=== PATIENT | male | born 1975 | race African-American/Black ===

== ENCOUNTER 2022-11-18 10:35 | Emergency (ER) | payer OTHER ==
[2022-11-18 10:41] VITALS: TEMP 98.3
--- NOTE | 2022-11-18 11:40 | XR ---
EXAMINATION TYPE: XR tibia fibula LT DATE OF EXAM: 11/18/2022 CLINICAL HISTORY: pain TECHNIQUE: AP and lateral images of the left tibia and fibula are obtained. COMPARISON: None. FINDINGS: There is no acute fracture/dislocation evident. There is intramedullary libby noted througho ut the tibia with 2 proximal and 2 distal screws noted. There is cortical thickening and central luce ncy proximal one third of the tibial diaphysis. Correlate for chronic osteomyelitis. IMPRESSION: There is no acute fracture or dislocation seen. ICD 10 NO FRACTURE, INITIAL EVALUATION
--- NOTE | 2022-11-18 12:07 | ED ---
Lower Extremity Injury HPI - General Chief Complaint: Extremity Injury, Lower Stated Complaint: L leg injury Time Seen by Provider: 11/18/22 10:42 Source: patient, RN notes reviewed Mode of arrival: ambulatory Limitations: no limitations - History of Present Illness Initial Comments: 47-year-old male presents emergency from chief complaint of left leg pain. Patient states he fell on the steps of a bus for days ago. He states her to raise swelling and pain. Patient's had prior hardware of his left leg. Patient states they're feels very warm to the touch. Denies any reported fevers or chills no other complaints. - Related Data Previous Rx's Medication Instructions Recorded HYDROcodone/APAP 10-325MG [[place] 1 each PO Q6H PRN #20 tab 01/29/14 10] Penicillin V Potassium [Pen Vee K] 500 mg PO QID #40 tab 01/29/14 Cephalexin [Keflex] 500 mg PO Q6HR #40 cap 11/18/22 Allergies Allergy/AdvReac Type Severity Reaction Status Date / Time No Known Allergies Allergy Verified 11/18/22 10:41 Review of Systems ROS Statement: Those systems with pertinent positive or pertinent negative responses have been documented in the HPI. ROS Other: All systems not noted in ROS Statement are negative. Past Medical History Past Medical History: No Reported History History of Any Multi-Drug Resistant Organisms: None Reported Past Surgical History: Cholecystectomy, Orthopedic Surgery Past Psychological History: No Psychological Hx Reported Smoking Status: Current every day smoker Past Alcohol Use History: None Reported Past Drug Use History: None Reported General Exam Limitations: no limitations General appearance: alert, in no apparent distress Head exam: Present: atraumatic, normocephalic, normal inspection Eye exam: Present: normal appearance, PERRL, EOMI. Absent: scleral icterus, conjunctival injection, periorbital swelling Respiratory exam: Present: normal lung sounds bilaterally. Absent: respiratory distress, wheezes, rales, rhonchi, stridor Cardiovascular Exam: Present: regular rate, normal rhythm, normal heart sounds. Absent: systolic murmur, diastolic murmur, rubs, gallop, clicks Extremities exam: Present: other (Left distal tib-fib there is two areas of swelling, wound noted mild warmth with palpation neurovascular intact) Course Vital Signs 11/18/22 11/18/22 11/18/22 10:40 10:41 12:46 Temperature 98.3 F Pulse Rate 82 84 64 Respiratory 20 20 18 Rate Blood Pressure 177/100 156/99 162/101 O2 Sat by Pulse 99 99 99 Oximetry Medical Decision Making - Medical Decision Making Was pt. sent in by a medical professional or institution (ROSALIND Granados, [employer], urgent care, hospital, or correction...) When possible be specific @ -No Did you speak to anyone other than the patient for history (EMS, parent, family, police, friend...)? What history was obtained from this source @ -No Did you review nursing and triage notes (agree or disagree)? Why? @ -I reviewed and agree with nursing and triage notes Were old charts reviewed (outside hosp., previous admission, EMS record, old EKG, old radiological studies, urgent care reports/EKG's, correction records)? Report findings @ -No old charts were reviewed Differential Diagnosis (chest pain, altered mental status, abdominal pain women, abdominal pain men, vaginal bleeding, weakness, fever, dyspnea, syncope, headache, dizziness, GI bleed, back pain, seizure, CVA, palpatations, mental health, musculoskeletal)? @ -Leg contusion, leg fracture, cellulitis, hematoma EKG interpreted by me (3pts min.). @ -Non- X-rays interpreted by me (1pt min.). @ -X-ray shows no acute process, no acute fracture no gas formation CT interpreted by me (1pt min.). @ -None done U/S interpreted by me (1pt. min.). @ -None done What testing was considered but not performed or refused? (CT, X-rays, U/S, labs)? Why? @ -None What meds were considered but not given or refused? Why? @ -None Did you discuss the management of the patient with other professionals (professionals i.e. ROSALIND Granados, [employer], lab, RT, psych nurse, social work nurse, manager technical training, teacher, family preservation officer, family preservation caseworker)? Give summary @ -No Was smoking cessation discussed for >3mins.? @ -No Was critical care preformed (if so, how long)? @ -No Were there social determinants of health that impacted care today? How? (Homelessness, low income, unemployed, alcoholism, drug addiction, transportation, low edu. Level, literacy, decrease access to med. care, half-way, rehab)? @ -No Was there de-escalation of care discussed even if they declined (Discuss DNR or withdrawal of care, Hospice)? DNR status @ -No What co-morbidities impacted this encounter? (DM, HTN, Smoking, COPD, CAD, Cancer, CVA, ARF, Chemo, Hep., AIDS, mental health diagnosis, sleep apnea, morbid obesity)? @ -None Was patient admitted / discharged? Hospital course, mention meds given and route, prescriptions, significant lab abnormalities, going to OR and other pertinent info. @ -Discharge patient is no acute fracture he does have some localized hematoma, open wound is concerned about early infectious process with placed on oral antibiotic is given hardware. Return parameters discussed. Undiagnosed new problem with uncertain prognosis? @ -No Drug Therapy requiring intensive monitoring for toxicity (Heparin, Nitro, Insulin, Cardizem)? @ -No Were any procedures done? @ -No Diagnosis/symptom? @ -Leg hematoma, open wound, cellulitis Acute, or Chronic, or Acute on Chronic? @ -Acute Uncomplicated (without systemic symptoms) or Complicated (systemic symptoms)? @ -Uncomplicated Side effects of treatment? @ -No Exacerbation, Progression, or Severe Exacerbation? @ -No Poses a threat to life or bodily function? How? (Chest pain, [place], NH, pneumonia, PE, COPD, DKA, ARF, appy, cholecystitis, CVA, Diverticulitis, Homicidal, Suicidal, threat to staff... and all critical care pts) @ -No Disposition Clinical Impression: Left leg cellulitis, Leg hematoma Disposition: HOME SELF-CARE Condition: Stable Instructions (If sedation given, give patient instructions): Hematoma (ED) Additional Instructions: Please return to the Emergency Department if symptoms worsen or any other concerns. Prescriptions: Cephalexin [Keflex] 500 mg PO Q6HR #40 cap Is patient prescribed a controlled substance at d/c from ED?: No Referrals: Shannan Serna [Primary Care Provider] - 1-2 days Time of Disposition: 12:23
[2022-11-18 12:48] VITALS: BP 162/101; PULSE 64; RESP 18
== END 2022-11-18 12:36 | disposition home or self-care (01) ==
LOC: EC 10:35
DX: S80.12XA Contusion of left lower leg, initial encounter (principal); F17.200 Nicotine dependence, unspecified, uncomplicated; Z90.49 Acquired absence of other specified parts of digestive tract; W10.8XXA Fall (on) (from) other stairs and steps, initial encounter
CPT/HCPCS: 99283

== ENCOUNTER 2023-11-05 01:42 | Emergency (ER) | payer OTHER ==
[2023-11-05] MEDS: SODIUM CHLORIDE 0.9% 1,000 ML IV STA (02:52)
[2023-11-05 03:09] LABS: Basophils % (A) 1 %; Eosinophils # (A) 0.1 k/uL (0-0.7); Eosinophils % (A) 3 %; HCT 42.3 % (39.0-53.0); HGB 13.7 gm/dL (13.0-17.5); Lymphocytes # (A) 2.4 k/uL (1.0-4.8); Lymphocytes % (A) 50 %; MCHC 32.4 g/dL (31.0-37.0); MCV 101.8 fL (80.0-100.0); Macrocytosis Slight; Mean Platelet Volume 7.5; Monocytes # (A) 0.2 k/uL (0-1.0); Monocytes % (A) 5 %; Neutrophils # (A) 1.9 k/uL (1.3-7.7); Neutrophils % (A) 40 %; Platelet Count 261 k/uL (150-450); RBC 4.15 m/uL (4.30-5.90); WBC 4.7 k/uL (3.8-10.6)
--- NOTE | 2023-11-05 03:10 | ED ---
General Adult HPI - General Source: patient, family, RN notes reviewed Mode of arrival: wheelchair Limitations: no limitations <Susanna Page - Last Filed: 11/05/23 03:51> <Jim Sanders - Last Filed: 11/05/23 05:31> - General Chief complaint: Arrhythmia/Palpitations Stated complaint: R Hand Laceration Time Seen by Provider: 11/05/23 03:08 - History of Present Illness Initial comments: 48-year-old male presented to the ER with a chief complaint of tremors and right hand injury. Patient reports he lost his mother approximately 2 weeks ago which has been extremely difficult for him. He states he has been experiencing "body tremors". He states he will wake up in the morning extremely shaky and having a racing heart. He states this evening he consumed approximately half a pint of alcohol. He denies any current chest pain or palpitations. He injured his right hand but is unsure of how. He states bleeding is controlled with compression. Tetanus is up-to-date. Patient denies any current headache, cough, congestion, shortness of breath, abdominal pain, constipation/diarrhea, urinary complaints or peripheral edema. Patient has no known cardiac history. No significant past medical history. (Susanna Page) - Related Data Previous Rx's Medication Instructions Recorded HYDROcodone/APAP 10-325MG [[place] 1 each PO Q6H PRN #20 tab 01/29/14 10] Penicillin V Potassium [Pen Vee K] 500 mg PO QID #40 tab 01/29/14 Cephalexin [Keflex] 500 mg PO Q6HR #40 cap 11/18/22 Allergies Allergy/AdvReac Type Severity Reaction Status Date / Time No Known Allergies Allergy Verified 11/05/23 01:51 Review of Systems ROS Other: All systems not noted in ROS Statement are negative. <Susanna Page - Last Filed: 11/05/23 03:51> ROS Other: All systems not noted in ROS Statement are negative. <Jim Sanders - Last Filed: 11/05/23 05:31> ROS Statement: Those systems with pertinent positive or pertinent negative responses have been documented in the HPI. Past Medical History Past Medical History: No Reported History History of Any Multi-Drug Resistant Organisms: None Reported Past Surgical History: Cholecystectomy, Orthopedic Surgery Past Psychological History: No Psychological Hx Reported Smoking Status: Current every day smoker Past Alcohol Use History: None Reported Past Drug Use History: None Reported <Susanna Page Filed: 11/05/23 03:51> General Exam Limitations: no limitations General appearance: alert, in no apparent distress, appears intoxicated Head exam: Present: atraumatic, normocephalic, normal inspection Respiratory exam: Present: normal lung sounds bilaterally. Absent: respiratory distress, wheezes, rales, rhonchi, stridor Cardiovascular Exam: Present: regular rate, normal rhythm, normal heart sounds. Absent: systolic murmur, diastolic murmur, rubs, gallop, clicks Extremities exam: Present: other (2 cm laceration to second right digit PIP joint. There is also a 1 cm laceration in between the PIP and DIP joint of the third right digit. She has full active range of motion. 2+ right radial pulse. Sensation intact.) Neurological exam: Present: alert, oriented X3, CN II-XII intact Skin exam: Present: warm, dry, intact, normal color. Absent: rash <Susanna Page Filed: 11/05/23 03:51> Course Vital Signs 11/05/23 11/05/23 11/05/23 01:48 02:35 02:54 Temperature 98 F Pulse Rate 76 74 73 Respiratory 18 16 16 Rate Blood Pressure 130/72 118/63 O2 Sat by Pulse 98 97 Oximetry 11/05/23 04:29 Temperature Pulse Rate 88 Respiratory 17 Rate Blood Pressure 118/77 O2 Sat by Pulse 94 L Oximetry Procedures - Laceration Laceration #1 Consent Obtained: verbal consent Indication: laceration Site: upper extremity Size (cm): 2 Depth: simple, single layer Pre-repair: wound explored, irrigated extensively, deep structures intact Type of Sutures: nylon Size of Sutures: 4-0 Number of Sutures: 2 Technique: simple, interrupted Patient Tolerated Procedure: well <Susanna Page Filed: 11/05/23 03:51> Medical Decision Making - Lab Data Result diagrams: 11/05/23 02:32 - EKG Data -: EKG Interpreted by Nd - Radiology Data Radiology results: report reviewed, image reviewed <Susanna Page Filed: 11/05/23 03:51> - Lab Data Result diagrams: 11/05/23 02:32 11/05/23 02:32 <Jim Sanders - Last Filed: 11/05/23 05:31> - Medical Decision Making Was pt. sent in by a medical professional or institution (, ROSALIND, [employer], urgent care, hospital, or penitentiary...) When possible be specific @ -No Did you speak to anyone other than the patient for history (EMS, parent, family, police, friend...)? What history was obtained from this source @ -No Did you review nursing and triage notes (agree or disagree)? Why? @ -I reviewed and agree with nursing and triage notes Were old charts reviewed (outside hosp., previous admission, EMS record, old EKG, old radiological studies, urgent care reports/EKG's, penitentiary records)? Report findings @ -No old charts were reviewed Differential Diagnosis (chest pain, altered mental status, abdominal pain women, abdominal pain men, vaginal bleeding, weakness, fever, dyspnea, syncope, headache, dizziness, GI bleed, back pain, seizure, CVA, palpatations, mental health, musculoskeletal)? @ -Differential Palpitations: Ventricular arrhythmias, atrial arrhythmias, myocardial infarction, anemia, thyrotoxicosis, electrolyte imbalance, hypokalemia, pulmonary embolism, pulmonary disease, drugs, alcohol, anxiety, stress.... This is not meant to be an all-inclusive list. EKG interpreted by me (3pts min.). @ -As above X-rays interpreted by me (1pt min.). @ -Right hand x-ray interpreted by me negative for acute osseous process. No radiopaque foreign bodies. Chest x-ray interpreted by me negative for acute cardiopulmonary process. CT interpreted by me (1pt min.). @ -None done U/S interpreted by me (1pt. min.). @ -None done What testing was considered but not performed or refused? (CT, X-rays, U/S, labs)? Why? @ -None What meds were considered but not given or refused? Why? @ -None Did you discuss the management of the patient with other professionals (professionals i.e. ROSALIND Granados, SUPER[employer], lab, RT, psych nurse, long term care social worker, water supply technician, teacher, senior compliance officer, case supervisor)? Give summary @ -No Was smoking cessation discussed for >3mins.? @ -No Was critical care preformed (if so, how long)? @ -No Were there social determinants of health that impacted care today? How? (Homelessness, low income, unemployed, alcoholism, drug addiction, transportation, low edu. Level, literacy, decrease access to med. care, long-term, rehab)? @ -No Was there de-escalation of care discussed even if they declined (Discuss DNR or withdrawal of care, Hospice)? DNR status @ -No What co-morbidities impacted this encounter? (DM, HTN, Smoking, COPD, CAD, Cancer, CVA, ARF, Chemo, Hep., AIDS, mental health diagnosis, sleep apnea, morbid obesity)? @ -None Was patient admitted / discharged? Hospital course, mention meds given and route, prescriptions, significant lab abnormalities, going to OR and other p ertinent info. @ -48-year-old male presented to ER with a chief complaint of "chest tremors". Patient also has right hand injury with lacerations. History and physical exam completed. Vitals stable. Patient in no signs of acute distress and nontoxic- appearing. Exam remarkable for a 2 cm laceration to right index finger. Minimal active bleeding. Right upper extremity neurovascular intact. There is also superficial lacerations to the third digit. Right hand x-ray interpreted by me negative for acute process or radiopaque foreign body. Lacerations closed, procedure note above. Cardiac workup obtained. Patient signed out to Dr. Sanders pending laboratory studies and disposition. (Susanna Page) - Lab Data Lab Results 11/05/23 11/05/23 11/05/23 Range/Units 02:32 02:32 02:32 WBC 4.7 (3.8-10.6) k/uL RBC 4.15 L (4.30-5.90) m/uL Hgb 13.7 (13.0-17.5) gm/dL Hct 42.3 (39.0-53.0) % MCV 101.8 H (80.0-100.0) fL MCH 33.0 (25.0-35.0) pg MCHC 32.4 (31.0-37.0) g/dL RDW 14.0 (11.5-15.5) % Plt Count 261 (150-450) k/uL MPV 7.5 Neutrophils % 40 % Lymphocytes % 50 % Monocytes % 5 % Eosinophils % 3 % Basophils % 1 % Neutrophils # 1.9 (1.3-7.7) k/uL Lymphocytes # 2.4 (1.0-4.8) k/uL Monocytes # 0.2 (0-1.0) k/uL Eosinophils # 0.1 (0-0.7) k/uL Basophils # 0.0 (0-0.2) k/uL Macrocytosis Slight PT 10.3 (10.0-12.5) sec INR 0.9 (<1.2) APTT 24.5 (22.0-30.0) sec Sodium 140 (137-145) mmol/L Potassium 3.6 (3.5-5.1) mmol/L Chloride 109 H (98-107) mmol/L Carbon Dioxide 21 L (22-30) mmol/L Anion Gap 10 mmol/L BUN 10 (9-20) mg/dL Creatinine 0.82 (0.66-1.25) mg/dL Est GFR (CKD-EPI)AfAm >90 (>60 ml/min/1.73 sqM) Est GFR (CKD-EPI)NonAf >90 (>60 ml/min/1.73 sqM) Glucose 85 (74-99) mg/dL Calcium 8.9 (8.4-10.2) mg/dL Magnesium 1.8 (1.6-2.3) mg/dL Total Bilirubin 1.3 (0.2-1.3) mg/dL AST 39 (17-59) U/L ALT 22 (4-49) U/L Alkaline Phosphatase 45 (38-126) U/L Troponin I (0.000-0.034) ng/mL Total Protein 6.9 (6.3-8.2) g/dL Albumin 4.2 (3.5-5.0) g/dL Serum Alcohol 272 H* mg/dL 11/05/23 Range/Units 02:32 WBC (3.8-10.6) k/uL RBC (4.30-5.90) m/uL Hgb (13.0-17.5) gm/dL Hct (39.0-53.0) % MCV (80.0-100.0) fL MCH (25.0-35.0) pg MCHC (31.0-37.0) g/dL RDW (11.5-15.5) % Plt Count (150-450) k/uL MPV Neutrophils % % Lymphocytes % % Monocytes % % Eosinophils % % Basophils % % Neutrophils # (1.3-7.7) k/uL Lymphocytes # (1.0-4.8) k/uL Monocytes # (0-1.0) k/uL Eosinophils # (0-0.7) k/uL Basophils # (0-0.2) k/uL Macrocytosis PT (10.0-12.5) sec INR (<1.2) APTT (22.0-30.0) sec Sodium (137-145) mmol/L Potassium (3.5-5.1) mmol/L Chloride (98-107) mmol/L Carbon Dioxide (22-30) mmol/L Anion Gap mmol/L BUN (9-20) mg/dL Creatinine (0.66-1.25) mg/dL Est GFR (CKD-EPI)AfAm (>60 ml/min/1.73 sqM) Est GFR (CKD-EPI)NonAf (>60 ml/min/1.73 sqM) Glucose (74-99) mg/dL Calcium (8.4-10.2) mg/dL Magnesium (1.6-2.3) mg/dL Total Bilirubin (0.2-1.3) mg/dL AST (17-59) U/L ALT (4-49) U/L Alkaline Phosphatase (38-126) U/L Troponin I <0.012 (0.000-0.034) ng/mL Total Protein (6.3-8.2) g/dL Albumin (3.5-5.0) g/dL Serum Alcohol mg/dL - EKG Data EKG Comments: EKG taken at 1: 56 showing a normal sinus rhythm. No acute ST segment or T wave abnormalities. Normal axis. Ventricular rate 67, SC interval 131, QRS duration 90, QT/QTc 392/408. (Susanna Page) Disposition <Susanna Page - Last Filed: 11/05/23 03:51> Is patient prescribed a controlled substance at d/c from ED?: No <Jim Sanders - Last Filed: 11/05/23 05:31> Clinical Impression: Alcohol intoxication Disposition: HOME SELF-CARE Condition: Good Instructions (If sedation given, give patient instructions): Alcohol Intoxication (ED) Referrals: Shannan Serna [Primary Care Provider] - 1-2 days
[2023-11-05 03:23] LABS: INR 0.9 (<1.2)
[2023-11-05 03:24] LABS: ALT 22 U/L (4-49); AST 39 U/L (17-59); African American GFR (CKD) >90 (>60 ml/min/1.73 sqM); Albumin 4.2 g/dL (3.5-5.0); Alkaline Phosphatase 45 U/L (38-126); Anion Gap 10 mmol/L; Blood Urea Nitrogen 10 mg/dL (9-20); Calcium 8.9 mg/dL (8.4-10.2); Carbon Dioxide 21 mmol/L (22-30); Chloride 109 mmol/L (98-107); Glucose 85 mg/dL (74-99); Magnesium 1.8 mg/dL (1.6-2.3); Non-African American GFR(CKD) >90 (>60 ml/min/1.73 sqM); Partial Thromboplastin Time 24.5 sec (22.0-30.0); Potassium 3.6 mmol/L (3.5-5.1); Prothrombin Time 10.3 sec (10.0-12.5); Sodium 140 mmol/L (137-145); Total Bilirubin 1.3 mg/dL (0.2-1.3); Total Protein 6.9 g/dL (6.3-8.2)
--- NOTE | 2023-11-05 03:27 | XR ---
EXAM: XR Chest, 2 Views CLINICAL HISTORY: ITS.REASON XR Reason: dysrhythmia TECHNIQUE: Frontal and lateral views of the chest. COMPARISON: No relevant prior studies available. FINDINGS: Lungs: Unremarkable. No consolidation. Pleural space: Unremarkable. No pneumothorax. Heart: Unremarkable. No cardiomegaly. Mediastinum: Unremarkable. Normal mediastinal contour. Bones/joints: Unremarkable. No acute fracture. IMPRESSION: No consolidation.
--- NOTE | 2023-11-05 03:32 | XR ---
EXAM: XR Right Hand Complete, 3 or More Views CLINICAL HISTORY: ITS.REASON XR Reason: laceration 2-3 digtis TECHNIQUE: Frontal, lateral and oblique views of the right hand. COMPARISON: No relevant prior studies available. FINDINGS: Bones/joints: Unremarkable. No acute fracture. No dislocation. Soft tissues: Unremarkable. No radiopaque foreign body. IMPRESSION: Normal right hand x-rays.
[2023-11-05] MEDS: LIDOCAINE/EPINEPHR/TETRACAINE 5 ML BOTTLE TOPICAL ONE (03:36)
[2023-11-05 04:06] LABS: Alcohol 272 mg/dL
[2023-11-05 05:38] VITALS: BP 127/87; PULSE 92; RESP 18; TEMP 98.3
== END 2023-11-05 05:42 | disposition home or self-care (01) ==
LOC: EC 01:42
DX: S61.411A Laceration without foreign body of right hand, initial encounter (principal); F10.129 Alcohol abuse with intoxication, unspecified; F17.200 Nicotine dependence, unspecified, uncomplicated; Z90.49 Acquired absence of other specified parts of digestive tract; X58.XXXA Exposure to other specified factors, initial encounter; Y90.8 Blood alcohol level of 240 mg/100 ml or more
CPT/HCPCS: 99285; 12001; 36415; 93005; 80053; 83735; 84484; 85025; 85610; 85730; 73120; 71046; 96360; G0480; 80320

== ENCOUNTER 2023-11-07 12:57 | Observation (INO) | payer OTHER ==
--- NOTE | 2023-11-07 13:23 | ED ---
Nausea/Vomiting/Diarrhea HPI - General Source: patient, RN notes reviewed <Mariana Somers - Last Filed: 11/07/23 13:20> - General Source: patient Limitations: no limitations <Carlos Pepper - Last Filed: 11/07/23 19:50> - General Chief complaint: Abdominal Pain Stated complaint: vomitting/abd pain Time Seen by Provider: 11/07/23 13:12 - History of Present Illness Initial comments: Quick [id number] male with history of gastric ulcers presenting with chief complaint of epigastric and upper abdominal pain over the past 3 to 4 days and associated nausea and vomiting. endorses symptoms of coffee-ground emesis, belching, heart burn, and chills. cholecystectomy completed roughly 5 to 6 years ago with no acute complications. (Mariana Somers) Patient is a 48-year-old male present to the emergency department with concerns with abdominal discomfort. Symptoms have progressed over the past few days. Patient does have nausea and vomiting. Symptoms worsen with attempted eating and does cause emesis. Patient does have history of similar symptoms previously associated with an ulcer. Patient states discomfort is waxing and waning and is sometimes severe. Discomfort is epigastric and somewhat towards the right upper quadrant (Carlos Pepper) - Related Data Home Medications Medication Instructions Recorded Confirmed Albuterol Sulfate [Albuterol 2 puff INHALATION RT-Q4H PRN 11/07/23 11/07/23 Sulfate Hfa] Montelukast [Singulair] 10 mg PO DAILY 11/07/23 11/07/23 amLODIPine [Norvasc] 10 mg PO DAILY 11/07/23 11/07/23 hydrOXYzine HCL [Atarax] 25 mg PO QID PRN 11/07/23 11/07/23 lisinopriL 40 mg PO DAILY 11/07/23 11/07/23 Allergies Allergy/AdvReac Type Severity Reaction Status Date / Time No Known Allergies Allergy Verified 11/07/23 19:43 Review of Systems ROS Other: All systems not noted in ROS Statement are negative. <Mariana Somers - Last Filed: 11/07/23 13:20> ROS Other: All systems not noted in ROS Statement are negative. Constitutional: Denies: fever Eyes: Denies: eye pain ENT: Denies: ear pain Respiratory: Denies: cough Cardiovascular: Denies: chest pain Gastrointestinal: Reports: as per HPI, abdominal pain, nausea, vomiting Genitourinary: Denies: dysuria Musculoskeletal: Denies: back pain <Carlos Pepper - Last Filed: 11/07/23 19:50> ROS Statement: Those systems with pertinent positive or pertinent negative responses have been documented in the HPI. Past Medical History Past Medical History: No Reported History History of Any Multi-Drug Resistant Organisms: None Reported Past Surgical History: Cholecystectomy, Orthopedic Surgery Past Psychological History: No Psychological Hx Reported Smoking Status: Current every day smoker Past Alcohol Use History: None Reported Past Drug Use History: None Reported <Mariana Somers - Last Filed: 11/07/23 13:20> General Exam <Mariana Somers - Last Filed: 11/07/23 13:20> Limitations: no limitations General appearance: alert Head exam: Present: normocephalic Eye exam: Present: normal appearance Neck exam: Present: normal inspection Respiratory exam: Present: normal lung sounds bilaterally Cardiovascular Exam: Present: regular rate, normal rhythm Expanded Peripheral pulses: 2+: Dorsalis Pedis (R), Dorsalis Pedis (L) GI/Abdominal exam: Present: soft, tenderness (Mild to moderate tenderness just right of the epigastrium), normal bowel sounds. Absent: distended, guarding, rebound, rigid, pulsatile mass Extremities exam: Present: normal inspection Neurological exam: Present: alert Psychiatric exam: Present: normal affect, normal mood Skin exam: Present: normal color <Carlos Pepper - Last Filed: 11/07/23 19:50> - General Exam Comments Initial Comments: Visual Physical Exam Vital signs reviewed General: Well-appearing, nontoxic, no acute distress. Head: Normocephalic, atraumatic Eyes: PERRLA, EOMI ENT: Airway patent Chest: Nonlabored breathing Skin: No visual rash, normal skin tone Neuro: Alert and oriented 3 Musculoskeletal: No gross abnormalities (Mariana Somers) Course Vital Signs 11/07/23 11/07/23 13:38 19:10 Temperature 97.9 F Pulse Rate 60 Respiratory 18 Rate Blood Pressure 203/110 190/116 O2 Sat by Pulse 99 Oximetry Medical Decision Making <Mariana Somers - Last Filed: 11/07/23 13:20> - Lab Data Result diagrams: 11/07/23 13:39 11/07/23 13:39 <Carlos Pepper - Last Filed: 11/07/23 19:50> - Medical Decision Making I completed the quick note portion of this chart signed Mariana Somers PA-C (Mariana Somers) Was pt. sent in by a medical professional or institution (ROSALIND Granados, DEAD MAIL CHECKER, urgent care, hospital, or penitentiary...) When possible be specific @ -No Did you speak to anyone other than the patient for history (EMS, parent, family, police, friend...)? What history was obtained from this source @ -No Did you review nursing and triage notes (agree or disagree)? Why? @ -I reviewed and agree with nursing and triage notes Were old charts reviewed (outside hosp., previous admission, EMS record, old EKG, old radiological studies, urgent care reports/EKG's, penitentiary records)? Report findings @ -No old charts were reviewed Differential Diagnosis (chest pain, altered mental status, abdominal pain women, abdominal pain men, vaginal bleeding, weakness, fever, dyspnea, syncope, headache, dizziness, GI bleed, back pain, seizure, CVA, palpatations, mental health, musculoskeletal)? @ -Differential Abdominal Pain Men: Appendicitis, cholecystitis, diverticulosis, ischemic bowel, pancreatitis, hepatitis, UTI, gastroenteritis, AAA, incarcerated hernia, bowel obstruction, constipation, inflammatory bowel, hepatitis, peptic ulcer disease, splenic infarction, perforated viscus, testicular torsion, this is not meant to be an all-inclusive list EKG interpreted by me (3pts min.). @ -As above X-rays interpreted by me (1pt min.). @ -None done CT interpreted by me (1pt min.). @ -CT scan without definite abnormality. There is a low-lying metallic, possibly surgical U/S interpreted by me (1pt. min.). @ -Ultrasound shows pedal megaly What testing was considered but not performed or refused? (CT, X-rays, U/S, labs)? Why? @ -None What meds were considered but not given or refused? Why? @ -None Did you discuss the management of the patient with other professionals (professionals i.e. ROSALIND Granados, DEAD MAIL CHECKER, lab, RT, psych nurse, transition social worker, seismograph computer, teacher, loss prevention officer, oil field caser)? Give summary @ -Case discussed with [facility], Dr. Courtney who will admit covering Dr. Link Aga Was smoking cessation discussed for >3mins.? @ -No Was critical care preformed (if so, how long)? @ -No Were there social determinants of health that impacted care today? How? (Homelessness, low income, unemployed, alcoholism, drug addiction, tr ansportation, low edu. Level, literacy, decrease access to med. care, senior care, rehab)? @ -No Was there de-escalation of care discussed even if they declined (Discuss DNR or withdrawal of care, Hospice)? DNR status @ -No What co-morbidities impacted this encounter? (DM, HTN, Smoking, COPD, CAD, Cancer, CVA, ARF, Chemo, Hep., AIDS, mental health diagnosis, sleep apnea, morbid obesity)? @ -History of gastric ulcer Was patient admitted / discharged? Hospital course, mention meds given and route, prescriptions, significant lab abnormalities, going to OR and other pertinent info. @ -Patient presents with nausea vomiting and abdominal discomfort. Patient is uncomfortable on original exam. Much improved on subsequent exam. Patient does add that he may have vomited up some blood. Patient will be admitted with GI consult. Admission orders written Undiagnosed new problem with uncertain prognosis? @ -No Drug Therapy requiring intensive monitoring for toxicity (Heparin, Nitro, Insulin, Cardizem)? @ -No Were any procedures done? @ -No Diagnosis/symptom? @ -Abdominal pain, vomiting, Acute, or Chronic, or Acute on Chronic? @ -, Acute Uncomplicated (without systemic symptoms) or Complicated (systemic symptoms)? @ -Default Side effects of treatment? @ -No Exacerbation, Progression, or Severe Exacerbation? @ -No Poses a threat to life or bodily function? How? (Chest pain, [place], [place], pneumonia, PE, COPD, DKA, ARF, appy, cholecystitis, CVA, Diverticulitis, Homicidal, Suicidal, threat to staff... and all critical care pts) @ -No (Carlos Pepper) - Lab Data Lab Results 11/07/23 11/07/23 11/07/23 Range/Units 13:39 13:39 13:39 WBC 5.7 (3.8-10.6) k/uL RBC 4.93 (4.30-5.90) m/uL Hgb 16.2 (13.0-17.5) gm/dL Hct 49.9 (39.0-53.0) % MCV 101.2 H (80.0-100.0) fL MCH 32.9 (25.0-35.0) pg MCHC 32.6 (31.0-37.0) g/dL RDW 13.5 (11.5-15.5) % Plt Count 269 (150-450) k/uL MPV 7.6 Neutrophils % 66 % Lymphocytes % 24 % Monocytes % 6 % Eosinophils % 2 % Basophils % 0 % Neutrophils # 3.8 (1.3-7.7) k/uL Lymphocytes # 1.4 (1.0-4.8) k/uL Monocytes # 0.4 (0-1.0) k/uL Eosinophils # 0.1 (0-0.7) k/uL Basophils # 0.0 (0-0.2) k/uL Sodium 137 (137-145) mmol/L Potassium 3.8 (3.5-5.1) mmol/L Chloride 101 (98-107) mmol/L Carbon Dioxide 26 (22-30) mmol/L Anion Gap 10 mmol/L BUN 10 (9-20) mg/dL Creatinine 0.88 (0.66-1.25) mg/dL Est GFR (CKD-EPI)AfAm >90 (>60 ml/min/1.73 sqM) Est GFR (CKD-EPI)NonAf >90 (>60 ml/min/1.73 sqM) Glucose 98 (74-99) mg/dL Plasma Lactic Acid Gilbert (0.7-2.0) mmol/L Calcium 10.0 (8.4-10.2) mg/dL Total Bilirubin 2.2 H (0.2-1.3) mg/dL AST 34 (17-59) U/L ALT 27 (4-49) U/L Alkaline Phosphatase 52 (38-126) U/L Total Protein 8.5 H (6.3-8.2) g/dL Albumin 4.9 (3.5-5.0) g/dL Amylase 101 (30-110) U/L Lipase 72 (23-300) U/L Urine Color Yellow Urine Appearance Clear (Clear) Urine pH 6.5 (5.0-8.0) Ur Specific [place] 1.033 (1.001-1.035) Urine Protein 1+ H (Negative) Urine Glucose (UA) Negative (Negative) Urine Ketones 2+ H (Negative) Urine Blood Small H (Negative) Urine Nitrite Negative (Negative) Urine Bilirubin 1+ H (Negative) Urine Urobilinogen 4.0 (<2.0) mg/dL Ur Leukocyte Esterase Negative (Negative) Urine RBC 29 H (0-5) /hpf Urine WBC 1 (0-5) /hpf Ur Squamous Epith Cells <1 (0-4) /hpf Urine Mucus Many H (None) /hpf 11/07/23 Range/Units 13:39 WBC (3.8-10.6) k/uL RBC (4.30-5.90) m/uL Hgb (13.0-17.5) gm/dL Hct (39.0-53.0) % MCV (80.0-100.0) fL MCH (25.0-35.0) pg MCHC (31.0-37.0) g/dL RDW (11.5-15.5) % Plt Count (150-450) k/uL MPV Neutrophils % % Lymphocytes % % Monocytes % % Eosinophils % % Basophils % % Neutrophils # (1.3-7.7) k/uL Lymphocytes # (1.0-4.8) k/uL Monocytes # (0-1.0) k/uL Eosinophils # (0-0.7) k/uL Basophils # (0-0.2) k/uL Sodium (137-145) mmol/L Potassium (3.5-5.1) mmol/L Chloride (98-107) mmol/L Carbon Dioxide (22-30) mmol/L Anion Gap mmol/L BUN (9-20) mg/dL Creatinine (0.66-1.25) mg/dL Est GFR (CKD-EPI)AfAm (>60 ml/min/1.73 sqM) Est GFR (CKD-EPI)NonAf (>60 ml/min/1.73 sqM) Glucose (74-99) mg/dL Plasma Lactic Acid Gilbert 1.2 (0.7-2.0) mmol/L Calcium (8.4-10.2) mg/dL Total Bilirubin (0.2-1.3) mg/dL AST (17-59) U/L ALT (4-49) U/L Alkaline Phosphatase (38-126) U/L Total Protein (6.3-8.2) g/dL Albumin (3.5-5.0) g/dL Amylase (30-110) U/L Lipase (23-300) U/L Urine Color Urine Appearance (Clear) Urine pH (5.0-8.0) Ur Specific [place] (1.001-1.035) Urine Protein (Negative) Urine Glucose (UA) (Negative) Urine Ketones (Negative) Urine Blood (Negative) Urine Nitrite (Negative) Urine Bilirubin (Negative) Urine Urobilinogen (<2.0) mg/dL Ur Leukocyte Esterase (Negative) Urine RBC (0-5) /hpf Urine WBC (0-5) /hpf Ur Squamous Epith Cells (0-4) /hpf Urine Mucus (None) /hpf Disposition <Mariana Somers - Last Filed: 11/07/23 13:20> Is patient prescribed a controlled substance at d/c from ED?: No Time of Disposition: 19:50 <Carlos Pepper - Last Filed: 11/07/23 19:50> Clinical Impression: Abdominal pain, Vomiting Disposition: ADMITTED IP TO THIS HOSP Referrals: Shannan Serna [Primary Care Provider] - 1-2 days
[2023-11-07 15:38] LABS: Appearance,Urine Clear (Clear); Bilirubin,Urine 1+ (Negative); Blood,Urine Small (Negative); Color,Urine Yellow; Glucose,Urine (UA) Negative (Negative); Ketones,Urine 2+ (Negative); Leukocyte Esterase,Urine Negative (Negative); Mucus,Urine Many /hpf; Nitrite,Urine Negative (Negative); PH, Urine 6.5 (5.0-8.0); Protein,Urine 1+ (Negative); RBC,Urine 29 /hpf (0-5); Specific Gravity,Urine 1.033 (1.001-1.035); Squamous Epithelial Cell,Urine <1 /hpf (0-4); WBC,Urine 1 /hpf (0-5)
--- NOTE | 2023-11-07 16:04 | US ---
EXAMINATION TYPE: US gallbladder DATE OF EXAM: 11/07/2023 COMPARISON: 2010 CLINICAL INDICATION: Male, 48 years old with history of RUQ ab pain, N/V, hx perla; Hx cholecystectom y. RUQ pain TECHNIQUE: Multiple sonographic images of the right upper quadrant are obtained. FINDINGS: EXAM MEASUREMENTS: Liver Length: 17.7 cm Gallbladder: Surgically absent CBD: 0.56 cm Right Kidney: 9.1 x 5.2 x 4.9 cm Pancreas: wnl Liver: Mild increased echogenicity. No focal lesion. Gallbladder: Surgically absent Evidence for sonographic Samuels's sign: no CBD: wnl Right Kidney: wnl IMPRESSION: 1. Borderline hepatomegaly at 17.7 cm with mild hepatic steatosis. Correlate with LFTs, lipid profile , and patient risk factors. 2. Status post cholecystectomy. No biliary ductal dilatation.
[2023-11-07 18:37] LABS: Basophils % (A) 0 %; Eosinophils # (A) 0.1 k/uL (0-0.7); Eosinophils % (A) 2 %; HCT 49.9 % (39.0-53.0); HGB 16.2 gm/dL (13.0-17.5); Lymphocytes # (A) 1.4 k/uL (1.0-4.8); Lymphocytes % (A) 24 %; MCH 32.9 pg (25.0-35.0); MCHC 32.6 g/dL (31.0-37.0); MCV 101.2 fL (80.0-100.0); Mean Platelet Volume 7.6; Monocytes # (A) 0.4 k/uL (0-1.0); Monocytes % (A) 6 %; Neutrophils # (A) 3.8 k/uL (1.3-7.7); Neutrophils % (A) 66 %; Platelet Count 269 k/uL (150-450); RBC 4.93 m/uL (4.30-5.90); RDW 13.5 % (11.5-15.5); WBC 5.7 k/uL (3.8-10.6)
[2023-11-07 18:49] LABS: ALT 27 U/L (4-49); AST 34 U/L (17-59); African American GFR (CKD) >90 (>60 ml/min/1.73 sqM); Albumin 4.9 g/dL (3.5-5.0); Alkaline Phosphatase 52 U/L (38-126); Amylase 101 U/L (30-110); Anion Gap 10 mmol/L; Blood Urea Nitrogen 10 mg/dL (9-20); Carbon Dioxide 26 mmol/L (22-30); Chloride 101 mmol/L (98-107); Glucose 98 mg/dL (74-99); Lipase 72 U/L (23-300); Non-African American GFR(CKD) >90 (>60 ml/min/1.73 sqM); Potassium 3.8 mmol/L (3.5-5.1); Sodium 137 mmol/L (137-145); Total Bilirubin 2.2 mg/dL (0.2-1.3); Total Protein 8.5 g/dL (6.3-8.2)
[2023-11-07] MEDS: HYDROmorphone 1 MG/ML 1 ML SYRINGE IVP STA (19:02)
[2023-11-07] MEDS: ONDANSETRON 4 MG/2 ML VIAL IVP STA (19:03)
[2023-11-07] MEDS: FAMOTIDINE 20 MG/2 ML VIAL IV STA (19:03)
--- NOTE | 2023-11-07 19:17 | CT ---
EXAMINATION TYPE: CT abdomen pelvis w con CT DLP: 658 mGycm, Automated exposure control for dose reduction was used. DATE OF EXAM: 11/07/2023 7:02 PM COMPARISON: CT abdomen pelvis most recent from CLINICAL INDICATION:Male, 48 years old with history of abp; Right sided abdominal pain. TECHNIQUE: Axial CT abdomen pelvis w con;Sagittal and coronal reformats were created on a separate w orkstation. Contrast used:100 ml mL of Isovue 300 with IV Contrast, (none if empty) Oral contrast used: without Oral Contrast (none if empty) FINDINGS: LOWER CHEST: Posterior dependent subsegmental atelectasis is noted. ABDOMEN LIVER: Diffusely hypoattenuating parenchyma. GALLBLADDER AND BILE DUCTS: The gallbladder is surgically absent. PANCREAS: Unremarkable. SPLEEN: Subcentimeter hypoattenuated focus in the spleen too small to characterize. ADRENAL GLANDS: Unremarkable. KIDNEYS AND URETERS: No evidence of hydronephrosis or renal calculus. The ureters are unremarkable. PELVIS BLADDER: Incompletely distended but grossly unremarkable. REPRODUCTIVE: Simple fluid noted in the scrotum likely on the basis of hydroceles. ABDOMEN & PELVIS STOMACH AND BOWEL: Stomach is grossly unremarkable. Small bowel is of normal caliber. There is a ques tionable metallic focus in the right abdomen which may be in the lumen of the small bowel versus rivera cent to it within the peritoneum. No evidence of bowel obstruction. PERITONEUM/RETROPERITONEUM: No evidence of pneumoperitoneum or free fluid. VASCULATURE: No aneurysmal changes. MUSCULOSKELETAL: Grade 1 anterolisthesis of L5 on S1 with associated pars defects. No acute osseous a bnormalities LYMPH NODES: No gross evidence for lymphadenopathy. SOFT TISSUE/ABDOMINAL WALL: Unremarkable IMPRESSION: 1. Questionable location of a metallic focus in the right sided abdomen. This metallic structure may be related to-ingested contents within the lumen of the small bowel versus dropped cholecystectomy c lips. Correlate with recent CT of surgery. 2. Hepatic steatosis.
[2023-11-07] MEDS ORDERED: ACETAMINOPHEN TAB 325 MG TAB PO PRN (19:50)
[2023-11-07] MEDS ORDERED: hydrOXYzine HCL 25 MG TAB PO PRN (19:50)
[2023-11-07] MEDS ORDERED: NALOXONE 0.4 MG/ML 1 ML VIAL IV PRN (19:50)
[2023-11-07] MEDS ORDERED: ONDANSETRON 4 MG/2 ML VIAL IVP PRN (19:50)
[2023-11-07] MEDS ORDERED: ALBUTEROL HFA INHALER INHALATION PRN (19:50)
[2023-11-07] MEDS ORDERED: HYDROmorphone 0.5 MG/0.5 ML SYRINGE IVP PRN (19:50)
[2023-11-07] MEDS: SODIUM CHLORIDE 0.9% 1,000 ML IV SCH (20:34)
[2023-11-07] MEDS: ENALAPRILAT 1.25 MG/ML 1 ML VIAL IVP STA (20:34)
[2023-11-07] MEDS: HYDROmorphone 1 MG/ML 1 ML SYRINGE IVP PRN (23:16)
[2023-11-08] MEDS: amLODIPine 10 MG TAB PO SCH (08:07)
[2023-11-08] MEDS: MONTELUKAST 10 MG TAB PO SCH (08:07)
[2023-11-08] MEDS: lisinopriL 20 MG TAB PO SCH (08:07)
[2023-11-08] MEDS: PANTOPRAZOLE 40 MG/10 ML VIAL IVP SCH (10:12)
[2023-11-08 10:47] LABS: BUN/Creat Ratio 8.67 Ratio (12.00-20.00); Blood Urea Nitrogen 7.8 mg/dL (9.0-27.0); Calcium 8.8 mg/dL (8.7-10.3); Carbon Dioxide 23.8 mmol/L (21.6-31.8); Chloride 99 mmol/L (96-109); Glucose 102 mg/dL (70-110); Potassium 3.8 mmol/L (3.5-5.5); Sodium 136 mmol/L (135-145)
[2023-11-08 10:48] LABS: Basophils # (A) 0.02 X 10*3/uL (0.00-0.10); Basophils % (A) 0.3 %; Eosinophils # (A) 0.08 X 10*3/uL (0.04-0.35); Eosinophils % (A) 1.4 %; HCT 42.4 % (39.6-50.0); HGB 14.1 g/dL (13.0-17.0); Lymphocytes # (A) 1.93 X 10*3/uL (0.90-5.00); Lymphocytes % (A) 33.3 %; MCH 33.1 pg (27.0-32.0); MCHC 33.3 g/dL (32.0-37.0); MCV 99.5 FL (80.0-97.0); Mean Platelet Volume 11.1 FL (9.5-12.2); Monocytes # (A) 0.67 X 10*3/uL (0.20-1.00); Monocytes % (A) 11.6 %; NRBC Per 100 WBC 0 X 10*3/uL (0.00-0.01); Neutrophils # (A) 3.08 X 10*3/uL (1.80-7.70); Neutrophils % (A) 53.2 %; Platelet Count 245 X 10*3/uL (140-440); RBC 4.26 X 10*6/uL (4.40-5.60); RDW 13.6 % (11.5-14.5); WBC 5.79 X 10*3/uL (4.50-10.00)
--- NOTE | 2023-11-08 12:15 | P.HPIM ---
History of Present Illness 48-year-old male with history of peptic ulcer disease in the past came in with complaints of right upper quadrant abdominal pain as per the patient crampy abdominal pain has been going on for about 5 days patient apparently complained of coffee-ground emesis although he denies any such complaints to me. Patient pain is severe in the right upper quadrant. Patient ran out of his proton pump any better about a month ago has not been taking this medication for about a month. Patient was eval by gastroenterology plan is to start him on Protonix twice a day and watch for any symptomatic improvement. Patient had a CT of the abdomen which showed a clip probably postsurgical from his previous cholecystectomy and hepatic steatosis REVIEW OF SYSTEMS: All other systems are negative except those mentioned in the HPI PHYSICAL EXAMINATION: GENERAL: The patient is alert and oriented x3, not in any acute distress. Well developed, well nourished. HEENT: Pupils are round and equally reacting to light. EOMI. No scleral icterus. No conjunctival pallor. Normocephalic, atraumatic. No pharyngeal erythema. No thyromegaly. CARDIOVASCULAR: S1 and S2 present. No murmurs, rubs, or gallops. PULMONARY: Chest is clear to auscultation, no wheezing or crackles. ABDOMEN: Soft, mild tenderness in the right upper quadrant, nondistended, normoactive bowel sounds. No palpable organomegaly. MUSCULOSKELETAL: No joint swelling or deformity. EXTREMITIES: No cyanosis, clubbing, or pedal edema. NEUROLOGICAL: Gross neurological examination did not reveal any focal deficits. SKIN: No rashes. Assessment and plan -Right upper quadrant abdominal pain can be still peptic ulcer disease, patient will be continued on Protonix and increase diet as tolerated. Patient had a clipped that may be dislodged probably not contributing to his pain but will consult general surgery for their opinion. -Hypertension continue on home regimen patient is on multiple medications which will be continued -Asthma/COPD without any acute exacerbation DVT prophylaxis: Early ambulation Past Medical History Past Medical History: No Reported History History of Any Multi-Drug Resistant Organisms: None Reported Past Surgical History: Cholecystectomy, Orthopedic Surgery Past Psychological History: No Psychological Hx Reported Smoking Status: Current every day smoker Past Alcohol Use History: None Reported Past Drug Use History: None Reported Medications and Allergies Home Medications Medication Instructions Recorded Confirmed Type Albuterol Sulfate [Albuterol 2 puff INHALATION RT-Q4H PRN 11/07/23 11/07/23 History Sulfate Hfa] Montelukast [Singulair] 10 mg PO DAILY 11/07/23 11/07/23 History amLODIPine [Norvasc] 10 mg PO DAILY 11/07/23 11/07/23 History hydrOXYzine HCL [Atarax] 25 mg PO QID PRN 11/07/23 11/07/23 History lisinopriL 40 mg PO DAILY 11/07/23 11/07/23 History Allergies Allergy/AdvReac Type Severity Reaction Status Date / Time No Known Allergies Allergy Verified 11/07/23 19:43 Physical Exam Vitals: Vital Signs Temp Pulse Resp BP Pulse Ox 11/08/23 12:05 97.6 F 75 20 153/101 96 11/08/23 10:15 97.7 F 70 18 154/87 98 11/08/23 09:32 67 18 158/93 97 11/08/23 08:30 165/98 11/08/23 07:30 97.6 F 60 20 151/97 97 11/08/23 06:31 76 22 181/96 98 11/08/23 04:00 68 24 152/93 98 11/08/23 03:00 72 20 202/111 11/07/23 23:10 68 20 167/109 97 11/07/23 20:54 59 L 16 167/102 99 11/07/23 20:26 180/113 11/07/23 19:10 190/116 11/07/23 13:38 97.9 F 60 18 203/110 99 Results CBC & Chem 7: 11/08/23 07:06 11/08/23 07:06 Labs: Abnormal Lab Results - Last 24 Hours (Table) 11/07/23 11/07/23 11/07/23 Range/Units 13:39 13:39 13:39 RBC (4.40-5.60) X 10*6/uL MCV 101.2 H (80.0-100.0) fL MCH (27.0-32.0) pg Anion Gap (4.00-12.00) mmol/L BUN (9.0-27.0) mg/dL BUN/Creatinine Ratio (12.00-20.00) Ratio Total Bilirubin 2.2 H (0.2-1.3) mg/dL Total Protein 8.5 H (6.3-8.2) g/dL Urine Protein 1+ H (Negative) Urine Ketones 2+ H (Negative) Urine Blood Small H (Negative) Urine Bilirubin 1+ H (Negative) Urine RBC 29 H (0-5) /hpf Urine Mucus Many H (None) /hpf 11/08/23 11/08/23 Range/Units 07:06 07:06 RBC 4.26 L (4.40-5.60) X 10*6/uL MCV 99.5 H (80.0-100.0) fL MCH 33.1 H (27.0-32.0) pg Anion Gap 13.20 H (4.00-12.00) mmol/L BUN 7.8 L (9.0-27.0) mg/dL BUN/Creatinine Ratio 8.67 L (12.00-20.00) Ratio Total Bilirubin (0.2-1.3) mg/dL Total Protein (6.3-8.2) g/dL Urine Protein (Negative) Urine Ketones (Negative) Urine Blood (Negative) Urine Bilirubin (Negative) Urine RBC (0-5) /hpf Urine Mucus (None) /hpf
--- NOTE | 2023-11-08 14:33 | P.GSCN ---
History of Present Illness Consult date: 11/08/23 Reason for Consult: Abdominal pain Abdominal pain History of present illness: 48-year-old male came to the hospital complaining of epigastric and right upper quadrant pain. Patient has a history of chronic reflux disease. Normally takes omeprazole 20 mg daily. Says he has not been able to fill his prescription for the last 1 month. Has been taking Tums instead. He was out of town. History of previous cholecystectomy 2007. Patient says he has a history of ulcer disease. Apparently he had some coffee-ground emesis. He was seen by GI with recommendations for antiacid therapy and observation. CAT scan reviewed shows no acute abnormalities. Denies melanotic stools. Hemoglobin stable. Review of Systems Patient denies any acute changes in his hearing or vision, no epistaxis, no headache, no shortness of breath, no chest pain, no dysuria, no hematuria, no rectal bleeding, no melena, no recent unexplained weight loss Past Medical History Past Medical History: No Reported History History of Any Multi-Drug Resistant Organisms: None Reported Past Surgical History: Cholecystectomy, Orthopedic Surgery Past Psychological History: No Psychological Hx Reported Smoking Status: Current every day smoker Past Alcohol Use History: None Reported Past Drug Use History: None Reported Medications and Allergies Home Medications Medication Instructions Recorded Confirmed Type Albuterol Sulfate [Albuterol 2 puff INHALATION RT-Q4H PRN 11/07/23 11/07/23 History Sulfate Hfa] Montelukast [Singulair] 10 mg PO DAILY 11/07/23 11/07/23 History amLODIPine [Norvasc] 10 mg PO DAILY 11/07/23 11/07/23 History hydrOXYzine HCL [Atarax] 25 mg PO QID PRN 11/07/23 11/07/23 History lisinopriL 40 mg PO DAILY 11/07/23 11/07/23 History Allergies Allergy/AdvReac Type Severity Reaction Status Date / Time No Known Allergies Allergy Verified 11/07/23 19:43 Surgical - Exam Vital Signs Temp Pulse Resp BP Pulse Ox 97.9 F 60 18 203/110 99 11/07/23 13:38 11/07/23 13:38 11/07/23 13:38 11/07/23 13:38 11/07/23 13:38 Physical exam: General: Well-developed, well-nourished HEENT: Normocephalic, sclerae nonicteric Abdomen: Mild epigastric tenderness, nondistended Extremities: No edema Neuro: Alert and oriented Results - Labs 11/08/23 07:06 11/08/23 07:06 Abnormal Lab Results - Last 24 Hours (Table) 11/07/23 11/07/23 11/07/23 Range/Units 13:39 13:39 13:39 RBC (4.40-5.60) X 10*6/uL MCV 101.2 H (80.0-100.0) fL MCH (27.0-32.0) pg Anion Gap (4.00-12.00) mmol/L BUN (9.0-27.0) mg/dL BUN/Creatinine Ratio (12.00-20.00) Ratio Total Bilirubin 2.2 H (0.2-1.3) mg/dL Total Protein 8.5 H (6.3-8.2) g/dL Urine Protein 1+ H (Negative) Urine Ketones 2+ H (Negative) Urine Blood Small H (Negative) Urine Bilirubin 1+ H (Negative) Urine RBC 29 H (0-5) /hpf Urine Mucus Many H (None) /hpf 11/08/23 11/08/23 Range/Units 07:06 07:06 RBC 4.26 L (4.40-5.60) X 10*6/uL MCV 99.5 H (80.0-100.0) fL MCH 33.1 H (27.0-32.0) pg Anion Gap 13.20 H (4.00-12.00) mmol/L BUN 7.8 L (9.0-27.0) mg/dL BUN/Creatinine Ratio 8.67 L (12.00-20.00) Ratio Total Bilirubin (0.2-1.3) mg/dL Total Protein (6.3-8.2) g/dL Urine Protein (Negative) Urine Ketones (Negative) Urine Blood (Negative) Urine Bilirubin (Negative) Urine RBC (0-5) /hpf Urine Mucus (None) /hpf Diabetes panel 11/07/23 11/08/23 Range/Units 13:39 07:06 Sodium 137 136 (137-145) mmol/L Potassium 3.8 3.8 (3.5-5.1) mmol/L Chloride 101 99 (98-107) mmol/L Carbon Dioxide 26 23.8 (22-30) mmol/L BUN 10 7.8 L (9-20) mg/dL Creatinine 0.88 0.9 (0.66-1.25) mg/dL Glucose 98 102 (74-99) mg/dL Calcium 10.0 8.8 (8.4-10.2) mg/dL AST 34 (17-59) U/L ALT 27 (4-49) U/L Alkaline Phosphatase 52 (38-126) U/L Total Protein 8.5 H (6.3-8.2) g/dL Albumin 4.9 (3.5-5.0) g/dL Calcium panel 11/07/23 11/08/23 Range/Units 13:39 07:06 Calcium 10.0 8.8 (8.4-10.2) mg/dL Albumin 4.9 (3.5-5.0) g/dL Pituitary panel 11/07/23 11/08/23 Range/Units 13:39 07:06 Sodium 137 136 (137-145) mmol/L Potassium 3.8 3.8 (3.5-5.1) mmol/L Chloride 101 99 (98-107) mmol/L Carbon Dioxide 26 23.8 (22-30) mmol/L BUN 10 7.8 L (9-20) mg/dL Creatinine 0.88 0.9 (0.66-1.25) mg/dL Glucose 98 102 (74-99) mg/dL Calcium 10.0 8.8 (8.4-10.2) mg/dL Adrenal panel 11/07/23 11/08/23 Range/Units 13:39 07:06 Sodium 137 136 (137-145) mmol/L Potassium 3.8 3.8 (3.5-5.1) mmol/L Chloride 101 99 (98-107) mmol/L Carbon Dioxide 26 23.8 (22-30) mmol/L BUN 10 7.8 L (9-20) mg/dL Creatinine 0.88 0.9 (0.66-1.25) mg/dL Glucose 98 102 (74-99) mg/dL Calcium 10.0 8.8 (8.4-10.2) mg/dL Total Bilirubin 2.2 H (0.2-1.3) mg/dL AST 34 (17-59) U/L ALT 27 (4-49) U/L Alkaline Phosphatase 52 (38-126) U/L Total Protein 8.5 H (6.3-8.2) g/dL Albumin 4.9 (3.5-5.0) g/dL Assessment and Plan (1) Epigastric pain Narrative/Plan: Epigastric abdominal pain and 48-year-old male with history of alcohol use and history of peptic ulcer disease. Agree with plans for antiacid therapy and Carafate. Patient may require upper endoscopy. Continue liquid diet for now. Will follow. Current Visit: Yes Status: Acute Code(s): R10.13 - EPIGASTRIC PAIN SNOMED Code(s): 53282737
--- NOTE | 2023-11-08 15:11 | P.CONS ---
History of Present Illness - Reason for Consult Consult date: 11/08/23 Vomiting, questionable GI bleed Requesting physician: Carlos Pepper - Chief Complaint Nausea and vomiting, right upper quadrant pain - History of Present Illness This a pleasant 48-year-old -[place] male who presented to the emergency department with complaints of nausea and vomiting and right upper quadrant pain for last 3 to 4 days duration. States he has a history of peptic ulcer disease about 10 years ago and he had an upper endoscopy at that time. They had prescribed him omeprazole which he had been taking except for the last months duration due to insurance. He also has history of alcohol abuse. States that he did have some coffee-ground emesis. No history of GI bleed in the past. He had a CT of the abdomen pelvis that reported questionable location of metallic focus in the right sided abdomen. The mid pelvic structure may be related to ingested contents within the lumen of the small bowel versus drop cholecystectomy clips. Correlate with recent CT of surgery. Hepatic steatosis. He states he has not had any more nausea or vomiting since coming in the hospital but he still has some right upper quadrant pain. Denies any fevers or chills. No diarrhea or bloody bowel movements. He denies any fevers or chills, he has been afebrile. Review of Systems REVIEW OF SYSTEMS: CARDIOPULMONARY: No chest pain or shortness of breath. Gastrointestinal: Abdominal pain, right upper quadrant pain. Nausea and vomit ing with right upper quadrant pain last 3 to 4 days.. No hematemesis, reports coffee-ground emesis 1-2 episodes. No rectal bleeding, or melena. GENITOURINARY: No dysuria or hematuria. MUSCULOSKELETAL: Reports normal range of motion. SKIN: No rashes. No jaundice. ENDOCRINE: No chills, fevers. No excessive weight gain or loss. No polydipsia or polyuria. PSYCHIATRIC: Unremarkable. NEUROLOGY: No change in mental status. Denies dizziness, headache. ENT: Vision unremarkable. CONSTITUTIONAL: No recent weight loss. No fever, chills, night sweats. Past Medical History Past Medical History: No Reported History History of Any Multi-Drug Resistant Organisms: None Reported Past Surgical History: Cholecystectomy, Orthopedic Surgery Past Psychological History: No Psychological Hx Reported Smoking Status: Current every day smoker Past Alcohol Use History: None Reported Past Drug Use History: None Reported Medications and Allergies Home Medications Medication Instructions Recorded Confirmed Type Albuterol Sulfate [Albuterol 2 puff INHALATION RT-Q4H PRN 11/07/23 11/07/23 History Sulfate Hfa] Montelukast [Singulair] 10 mg PO DAILY 11/07/23 11/07/23 History amLODIPine [Norvasc] 10 mg PO DAILY 11/07/23 11/07/23 History hydrOXYzine HCL [Atarax] 25 mg PO QID PRN 11/07/23 11/07/23 History lisinopriL 40 mg PO DAILY 11/07/23 11/07/23 History Allergies Allergy/AdvReac Type Severity Reaction Status Date / Time No Known Allergies Allergy Verified 11/07/23 19:43 Physical Exam Vitals: Vital Signs Temp Pulse Resp BP Pulse Ox 11/08/23 06:31 76 22 181/96 98 11/08/23 04:00 68 24 152/93 98 11/08/23 03:00 72 20 202/111 11/07/23 23:10 68 20 167/109 97 11/07/23 20:54 59 L 16 167/102 99 11/07/23 20:26 180/113 11/07/23 19:10 190/116 11/07/23 13:38 97.9 F 60 18 203/110 99 General appearance: The patient is alert, oriented, appears in no acute distress. HET: Head is normocephalic and atraumatic. Conjunctiva pink. Sclera anicteric. Neck: Supple without lymphadenopathy. Trachea midline. Heart: Regular. Lungs: Equal expansion, normal respiratory effort. Abdomen: Soft, right upper quadrant tenderness, nondistended. Skin: No rashes. No jaundice. Extremities: Normal skin color and turgor. No pedal edema. Neurological: No focal deficits. Alert and oriented x3. Results CBC & Chem 7: 11/08/23 07:06 11/08/23 07:06 Labs: Abnormal Lab Results - Last 24 Hours (Table) 11/07/23 11/07/23 11/07/23 Range/Units 13:39 13:39 13:39 MCV 101.2 H (80.0-100.0) fL Total Bilirubin 2.2 H (0.2-1.3) mg/dL Total Protein 8.5 H (6.3-8.2) g/dL Urine Protein 1+ H (Negative) Urine Ketones 2+ H (Negative) Urine Blood Small H (Negative) Urine Bilirubin 1+ H (Negative) Urine RBC 29 H (0-5) /hpf Urine Mucus Many H (None) /hpf Comments: CT of the abdomen pelvis that reported questionable location of metallic focus in the right sided abdomen. The mid pelvic structure may be related to ingested contents within the lumen of the small bowel versus drop cholecystectomy clips. Correlate with recent CT of surgery. Hepatic steatosis. Assessment and Plan (1) Nausea and vomiting Narrative/Plan: 48-year-old male with a history of ulcer reported 10 years ago presenting with right upper quadrant pain nausea and vomiting for 3 days with reported 1-2 episodes of coffee-ground emesis. Unclear etiology, need to consider possible viral, alcohol gastritis, peptic ulcer disease esophagitis or other possible etiologies. Does have reported acid reflux has not been taking his omeprazole as prescribed for last months duration. Recommend symptomatic care at this time. Start Protonix 40 mg twice daily. Continue to monitor. If nausea, vomiting, and pain does not resolve can consider upper endoscopy. Current Visit: Yes Status: Acute Code(s): R11.2 - NAUSEA WITH VOMITING, UNSPECIFIED SNOMED Code(s): 82937972 (2) Right upper quadrant pain Current Visit: Yes Status: Acute Code(s): R10.11 - RIGHT UPPER QUADRANT PAIN SNOMED Code(s): 029529240 Plan: 1. Continue symptomatic and supportive care 2. May have clear liquid diet and advance as tolerated 3. Protonix 40 mg twice daily 5. Avoid NSAIDs 6. If symptoms continue can consider upper endoscopy. Gastroenterology will resume services on 11/11/2023 Thank you for allowing us to participate in the care of the patient, the GI service will sign off, gastroenterology will not be available at the hospital this weekend. If further evaluation by gastroenterology is required the patient will need transfer as per the primary team's discretion. Dr. Yolanda Villavicencio I agree with the dictator's note, documented as a scribe by Liz Vázquez.
[2023-11-08] MEDS: SUCRALFATE 1 GM TAB PO SCH (18:39)
[2023-11-08 18:43] VITALS: RESP 16
[2023-11-09 07:31] VITALS: BP 149/89; PULSE 61; TEMP 98.3
[2023-11-09 11:41] LABS: BUN/Creat Ratio 6.75 Ratio (12.00-20.00); Blood Urea Nitrogen 5.4 mg/dL (9.0-27.0); Calcium 8.8 mg/dL (8.7-10.3); Carbon Dioxide 21.5 mmol/L (21.6-31.8); Chloride 107 mmol/L (96-109); Glucose 100 mg/dL (70-110); Potassium 3.7 mmol/L (3.5-5.5); Sodium 143 mmol/L (135-145)
[2023-11-09 11:44] LABS: HCT 42.7 % (39.6-50.0); HGB 14.1 g/dL (13.0-17.0); MCH 32.3 pg (27.0-32.0); MCV 97.7 FL (80.0-97.0); Mean Platelet Volume 10.9 FL (9.5-12.2); NRBC Per 100 WBC 0 X 10*3/uL (0.00-0.01); Platelet Count 237 X 10*3/uL (140-440); RBC 4.37 X 10*6/uL (4.40-5.60); RDW 13.1 % (11.5-14.5); WBC 4.38 X 10*3/uL (4.50-10.00)
--- NOTE | 2023-12-06 19:59 | P.DS ---
Providers Date of admission: 11/07/23 19:52 Attending physician: Letty Suárez MD Consults: 11/07/23 19:50 Consult Physician Routine Consulting Provider: Chayo Villavicencio Consult Reason/Comments: vomiting, ? gi bleed Do you want consulting provider notified?: Yes 11/08/23 12:08 Consult Physician Routine Consulting Provider: Tony Hinkle Consult Reason/Comments: abdominal pain Do you want consulting provider notified?: Yes Primary care physician: [facility] Course: Final Diagnosis -Right upper quadrant abdominal pain can be still peptic ulcer disease, patient will be continued on Protonix and increase diet as tolerated. Patient had a clipped that may be dislodged probably not contributing to his pain. -Hypertension continue on home regimen patient is on multiple medications which will be continued -Asthma/COPD without any acute exacerbation Discharge Disposition Stable for discharge home. Follow up with GI outpatient. Hospital Course 48-year-old male with history of peptic ulcer disease in the past came in with complaints of right upper quadrant abdominal pain as per the patient crampy abdominal pain has been going on for about 5 days patient apparently complained of coffee-ground emesis although he denies any such complaints to me. Patient pain is severe in the right upper quadrant. Patient ran out of his proton pump any better about a month ago has not been taking this medication for about a month. Patient was eval by gastroenterology plan is to start him on Protonix twice a day and watch for any symptomatic improvement. Patient had a CT of the abdomen which showed a clip probably postsurgical from his previous cholecystectomy and hepatic steatosis. History of previous cholecystectomy 2007. Patient says he has a history of ulcer disease. Apparently he had some coffee- ground emesis. He was seen by GI with recommendations for antiacid therapy and observation. CAT scan reviewed shows no acute abnormalities. Denies melanotic stools. Hemoglobin stable. He will be discharged on carafate. He is tolerating diet. Follow up with GI outpatient. Please see medication reconciliation for a list of current medications. Thank you for allowing us to participate in the care of this patient. The impression and plan of care has been dictated by Jodie Ortiz, Nurse Practitioner as directed. Dr. Adrienne MD I have performed a history and physical examination and medical decision making of this patient, discussed the same with the dictator, and agree with the dictators assessment and plan as written, documented as a scribe. Based on total visit time, I have performed more than 50% of this visit. Patient Condition at Discharge: Fair Plan - Discharge Summary New Discharge Prescriptions: New Sucralfate [Carafate] 1 gm PO AC-TID 14 Days #42 tab Pantoprazole [Protonix] 40 mg PO DAILY #30 tab Continue Montelukast [Singulair] 10 mg PO DAILY Albuterol Sulfate [Albuterol Sulfate Hfa] 2 puff INHALATION RT-Q4H PRN PRN Reason: Shortness Of Breath hydrOXYzine HCL [Atarax] 25 mg PO QID PRN PRN Reason: Anxiety lisinopriL 40 mg PO DAILY amLODIPine [Norvasc] 10 mg PO DAILY Discharge Medication List Albuterol Sulfate [Albuterol Sulfate Hfa] 2 puff INHALATION RT-Q4H PRN 11/07/23 [History] Montelukast [Singulair] 10 mg PO DAILY 11/07/23 [History] amLODIPine [Norvasc] 10 mg PO DAILY 11/07/23 [History] hydrOXYzine HCL [Atarax] 25 mg PO QID PRN 11/07/23 [History] lisinopriL 40 mg PO DAILY 11/07/23 [History] Pantoprazole [Protonix] 40 mg PO DAILY #30 tab 11/09/23 [Rx] Sucralfate [Carafate] 1 gm PO AC-TID 14 Days #42 tab 11/09/23 [Rx] Follow up Appointment(s)/Referral(s): Damon López MD [Medical Doctor] - 1 Week (General Surgery) Shannan Serna [Primary Care Provider] - 1-2 days Ambulatory/Diagnostic Orders: Basic Metabolic Panel [LAB.AMB] Time Frame: 3 Days, Location: None Selected Complete Blood Count w/diff [LAB.AMB] Location: None Selected Patient Instructions/Handouts: Gastritis (DC), Acute Nausea and Vomiting (DC)
== END 2023-11-09 14:22 ==
LOC: EC 12:57 → 6NMEDSUR 19:52
PROVIDERS: ADMIT Internal Medicine; ATTEND Internal Medicine
DX: R10.11 Right upper quadrant pain (principal); R10.13 Epigastric pain; R11.2 Nausea with vomiting, unspecified; K21.9 Gastro-esophageal reflux disease without esophagitis; I10 Essential (primary) hypertension; J44.9 Chronic obstructive pulmonary disease, unspecified; K76.0 Fatty (change of) liver, not elsewhere classified; F17.200 Nicotine dependence, unspecified, uncomplicated; Z87.11 Personal history of peptic ulcer disease; Z90.49 Acquired absence of other specified parts of digestive tract; Z79.899 Other long term (current) drug therapy
CPT/HCPCS: 36415; 80053; 80048 ×2; 82150; 83605; 83690; 85025 ×2; 85027; 81001; 76705; 74177; G0378 ×3; J2405; J3490; J1170 ×3; Q9967; J2470 ×2; 96361; 96374; 96375; 96376; 99285

== ENCOUNTER 2024-01-22 14:19 | Emergency (ER) | payer OTHER ==
[2024-01-22 14:26] VITALS: TEMP 98.9
--- NOTE | 2024-01-22 14:39 | ED ---
Abdominal Pain HPI - General Chief Complaint: Abdominal Pain Stated Complaint: Abd pain Time Seen by Provider: 01/22/24 14:24 Source: patient, RN notes reviewed, old records reviewed Mode of arrival: EMS Limitations: no limitations - History of Present Illness Initial Comments: This is a 48-year-old male to the ER for evaluation today. This patient pre sents today for evaluation regards to severe abdominal pain with nausea vomiting believes he has recurrent ulcerative type pain also has history of ulcers. Severe pain here in the ER right upper quadrant pain which she has a history of MD Complaint: abdominal pain -: days(s) Location: RUQ Radiation: RUQ Migration to: epigastric Severity: moderate Severity scale (1-10): 6 Quality: fullness, sharp Consistency: constant Improves With: nothing Worsens With: nothing Associated Symptoms: nausea, vomiting Treatments Prior to Arrival: other - Related Data Home Medications Medication Instructions Recorded Confirmed Albuterol Sulfate [Albuterol 2 puff INHALATION RT-Q4H PRN 11/07/23 11/07/23 Sulfate Hfa] Montelukast [Singulair] 10 mg PO DAILY 11/07/23 11/07/23 amLODIPine [Norvasc] 10 mg PO DAILY 11/07/23 11/07/23 hydrOXYzine HCL [Atarax] 25 mg PO QID PRN 11/07/23 11/07/23 lisinopriL 40 mg PO DAILY 11/07/23 11/07/23 Previous Rx's Medication Instructions Recorded Pantoprazole [Protonix] 40 mg PO DAILY #30 tab 11/09/23 Sucralfate [Carafate] 1 gm PO AC-TID 14 Days #42 tab 11/09/23 Allergies Allergy/AdvReac Type Severity Reaction Status Date / Time No Known Allergies Allergy Verified 01/22/24 14:26 Review of Systems ROS Statement: Those systems with pertinent positive or pertinent negative responses have been documented in the HPI. ROS Other: All systems not noted in ROS Statement are negative. Past Medical History Past Medical History: No Reported History History of Any Multi-Drug Resistant Organisms: None Reported Past Surgical History: Cholecystectomy, Orthopedic Surgery Past Psychological History: No Psychological Hx Reported Smoking Status: Current every day smoker Past Alcohol Use History: None Reported Past Drug Use History: None Reported General Exam General appearance: alert, in no apparent distress Head exam: Present: atraumatic, normocephalic, normal inspection Eye exam: Present: normal appearance, PERRL, EOMI. Absent: scleral icterus, conjunctival injection, periorbital swelling ENT exam: Present: normal exam, mucous membranes moist Neck exam: Present: normal inspection. Absent: tenderness, meningismus, lymphadenopathy Respiratory exam: Present: normal lung sounds bilaterally. Absent: respiratory distress, wheezes, rales, rhonchi, stridor Cardiovascular Exam: Present: regular rate, normal rhythm, normal heart sounds. Absent: systolic murmur, diastolic murmur, rubs, gallop, clicks GI/Abdominal exam: Present: soft, normal bowel sounds. Absent: distended, tenderness, guarding, rebound, rigid Extremities exam: Present: normal inspection, full ROM, normal capillary refill. Absent: tenderness, pedal edema, joint swelling, calf tenderness Back exam: Present: normal inspection Neurological exam: Present: alert, oriented X3, CN II-XII intact Psychiatric exam: Present: normal affect, normal mood Skin exam: Present: warm, dry, intact, normal color. Absent: rash Course Vital Signs 01/22/24 01/22/24 01/22/24 14:21 15:00 18:00 Temperature 98.9 F Pulse Rate 84 87 89 Respiratory 16 18 18 Rate Blood Pressure 158/92 136/87 136/89 O2 Sat by Pulse 100 98 98 Oximetry - Reevaluation(s) Reevaluation #1: 01/22/24 17:33 Medical records reviewed Reevaluation #2: 01/22/24 17:33 Symptoms unchanged Reevaluation #3: 01/22/24 17:33 Patient informed of results and questions answered Reevaluation #4: Was pt. sent in by a medical professional or institution (, PA, ABSTRACT WRITER, urgent care, hospital, or assisted...) When possible be specific @ -no Did you speak to anyone other than the patient for history (EMS, parent, family, police, friend...)? What history was obtained from this source @ -no Did you review nursing and triage notes (agree or disagree)? Why? @ -agree Are old charts reviewed (outside hosp., previous admission, EMS record, old EKG, old radiological studies, urgent care reports/EKG's, assisted records)? Report findings @ -yes Differential Diagnosis (chest pain, altered mental status, abdominal pain women, abdominal pain men, vaginal bleeding, weakness, fever, dyspnea, syncope, headache, dizziness, GI bleed, back pain, seizure, CVA, palpatations, mental health, musculoskeletal)? @ -prior EKG interpreted by me (3pts min.). @ -no X-rays interpreted by me (1pt min.). @ -no CT interpreted by me (1pt min.). @ -yes negative for acute disease U/S interpreted by me (1pt. min.). @ -no What testing was considered but not performed or refused? (CT, X-rays, U/S, labs)? Why? @ -none What meds were considered but not given or refused? Why? @ -none Did you discuss the management of the patient with other professionals (professionals i.e. , PA, ABSTRACT WRITER, lab, RT, psych nurse, social services analyst, salvage machine operator, teacher, planned giving officer, case specialist)? Give summary @ -no Was smoking cessation discussed for >3mins.? @ -no Was critical care preformed (if so, how long)? @ -no Were there social determinants of health that impacted care today? How? (Homelessness, low income, unemployed, alcoholism, drug addiction, transportation, low edu. Level, literacy, decrease access to med. care, usp, rehab)? @ -none Was there de-escalation of care discussed even if they declined (Discuss DNR or withdrawal of care, Hospice)? DNR status @ -no What co-morbidities impacted this encounter? (DM, HTN, Smoking, COPD, CAD, Cancer, CVA, ARF, Chemo, Hep., AIDS, mental health diagnosis, sleep apnea, morbid obesity)? @ -none Was patient admitted / discharged? Hospital course, mention meds given and route, prescriptions, significant lab abnormalities, going to OR and other pertinent info. @ - 48 male to the ED w ulcer and abdominal pain, patient feels improved and OK for DC Discharge Undiagnosed new problem with uncertain prognosis? @ -no Drug Therapy requiring intensive monitoring for toxicity (Heparin, Nitro, Insulin, Cardizem)? @ -no Were any procedures done? @ -no Diagnosis/symptom? @ -Gastric ulcer with abdominal pain Acute, or Chronic, or Acute on Chronic? @ -Acute Uncomplicated (without systemic symptoms) or Complicated (systemic symptoms)? @ -Complicated Side effects of treatment? @ -no Exacerbation, Progression, or Severe Exacerbation? @ -exacerbation Poses a threat to life or bodily function? How? (Chest pain, USA, NH, pneumonia, PE, COPD, DKA, ARF, appy, cholecystitis, CVA, Diverticulitis, Homicidal, Suicidal, threat to staff... and all critical care pts) @ -no Medical Decision Making - Medical Decision Making 48 male to the ED w ulcer and abdominal pain, patient feels improved and OK for DC - Lab Data Result diagrams: 01/22/24 14:48 01/22/24 14:48 Lab Results 01/22/24 01/22/24 01/22/24 Range/Units 14:48 14:48 14:48 WBC 7.7 (3.8-10.6) k/uL RBC 4.91 (4.30-5.90) m/uL Hgb 16.2 (13.0-17.5) gm/dL Hct 47.1 (39.0-53.0) % MCV 95.8 (80.0-100.0) fL MCH 33.1 (25.0-35.0) pg MCHC 34.5 (31.0-37.0) g/dL RDW 12.5 (11.5-15.5) % Plt Count 224 (150-450) k/uL MPV 8.0 Neutrophils % 72 % Lymphocytes % 18 % Monocytes % 7 % Eosinophils % 2 % Basophils % 0 % Neutrophils # 5.6 (1.3-7.7) k/uL Lymphocytes # 1.4 (1.0-4.8) k/uL Monocytes # 0.5 (0-1.0) k/uL Eosinophils # 0.1 (0-0.7) k/uL Basophils # 0.0 (0-0.2) k/uL PT 10.5 (10.0-12.5) sec INR 1.0 (<1.2) APTT 23.4 (22.0-30.0) sec Sodium 141 (137-145) mmol/L Potassium 4.0 (3.5-5.1) mmol/L Chloride 103 (98-107) mmol/L Carbon Dioxide 28 (22-30) mmol/L Anion Gap 10 mmol/L BUN 22 H (9-20) mg/dL Creatinine 0.95 (0.66-1.25) mg/dL Est GFR (CKD-EPI)AfAm >90 (>60 ml/min/1.73 sqM) Est GFR (CKD-EPI)NonAf >90 (>60 ml/min/1.73 sqM) Glucose 123 H (74-99) mg/dL Plasma Lactic Acid Gilbert (0.7-2.0) mmol/L Calcium 10.1 (8.4-10.2) mg/dL Total Bilirubin 1.6 H (0.2-1.3) mg/dL AST 27 (17-59) U/L ALT 21 (4-49) U/L Alkaline Phosphatase 49 (38-126) U/L Troponin I (0.000-0.034) ng/mL Total Protein 8.4 H (6.3-8.2) g/dL Albumin 4.9 (3.5-5.0) g/dL Amylase 85 (30-110) U/L Lipase 77 (23-300) U/L 01/22/24 01/22/24 Range/Units 14:48 14:48 WBC (3.8-10.6) k/uL RBC (4.30-5.90) m/uL Hgb (13.0-17.5) gm/dL Hct (39.0-53.0) % MCV (80.0-100.0) fL MCH (25.0-35.0) pg MCHC (31.0-37.0) g/dL RDW (11.5-15.5) % Plt Count (150-450) k/uL MPV Neutrophils % % Lymphocytes % % Monocytes % % Eosinophils % % Basophils % % Neutrophils # (1.3-7.7) k/uL Lymphocytes # (1.0-4.8) k/uL Monocytes # (0-1.0) k/uL Eosinophils # (0-0.7) k/uL Basophils # (0-0.2) k/uL PT (10.0-12.5) sec INR (<1.2) APTT (22.0-30.0) sec Sodium (137-145) mmol/L Potassium (3.5-5.1) mmol/L Chloride (98-107) mmol/L Carbon Dioxide (22-30) mmol/L Anion Gap mmol/L BUN (9-20) mg/dL Creatinine (0.66-1.25) mg/dL Est GFR (CKD-EPI)AfAm (>60 ml/min/1.73 sqM) Est GFR (CKD-EPI)NonAf (>60 ml/min/1.73 sqM) Glucose (74-99) mg/dL Plasma Lactic Acid Gilbert 1.5 (0.7-2.0) mmol/L Calcium (8.4-10.2) mg/dL Total Bilirubin (0.2-1.3) mg/dL AST (17-59) U/L ALT (4-49) U/L Alkaline Phosphatase (38-126) U/L Troponin I <0.012 (0.000-0.034) ng/mL Total Protein (6.3-8.2) g/dL Albumin (3.5-5.0) g/dL Amylase (30-110) U/L Lipase (23-300) U/L - Radiology Data Radiology results: report reviewed (CT abdPelvis is negative for acute disease), image reviewed Disposition Clinical Impression: Abdominal pain, Nausea and vomiting, Gastritis Disposition: HOME SELF-CARE Condition: Good Instructions (If sedation given, give patient instructions): Gastritis (ED) Is patient prescribed a controlled substance at d/c from ED?: No Referrals: Shannan Serna [Primary Care Provider] - 1-2 days Time of Disposition: 17:30
[2024-01-22 15:05] LABS: ALT 21 U/L (4-49); AST 27 U/L (17-59); African American GFR (CKD) >90 (>60 ml/min/1.73 sqM); Albumin 4.9 g/dL (3.5-5.0); Alkaline Phosphatase 49 U/L (38-126); Amylase 85 U/L (30-110); Anion Gap 10 mmol/L; Basophils % (A) 0 %; Blood Urea Nitrogen 22 mg/dL (9-20); Calcium 10.1 mg/dL (8.4-10.2); Carbon Dioxide 28 mmol/L (22-30); Chloride 103 mmol/L (98-107); Eosinophils # (A) 0.1 k/uL (0-0.7); Eosinophils % (A) 2 %; Glucose 123 mg/dL (74-99); HCT 47.1 % (39.0-53.0); HGB 16.2 gm/dL (13.0-17.5); Lipase 77 U/L (23-300); Lymphocytes # (A) 1.4 k/uL (1.0-4.8); Lymphocytes % (A) 18 %; MCH 33.1 pg (25.0-35.0); MCHC 34.5 g/dL (31.0-37.0); MCV 95.8 fL (80.0-100.0); Monocytes # (A) 0.5 k/uL (0-1.0); Monocytes % (A) 7 %; Neutrophils # (A) 5.6 k/uL (1.3-7.7); Neutrophils % (A) 72 %; Non-African American GFR(CKD) >90 (>60 ml/min/1.73 sqM); Platelet Count 224 k/uL (150-450); RBC 4.91 m/uL (4.30-5.90); RDW 12.5 % (11.5-15.5); Sodium 141 mmol/L (137-145); Total Bilirubin 1.6 mg/dL (0.2-1.3); Total Protein 8.4 g/dL (6.3-8.2); WBC 7.7 k/uL (3.8-10.6)
[2024-01-22 15:09] LABS: Partial Thromboplastin Time 23.4 sec (22.0-30.0); Prothrombin Time 10.5 sec (10.0-12.5)
[2024-01-22] MEDS: PANTOPRAZOLE 40 MG/10 ML VIAL IVP STA (15:12)
[2024-01-22] MEDS: ONDANSETRON 4 MG/2 ML VIAL IVP STA (15:12)
[2024-01-22] MEDS: SODIUM CHLORIDE 0.9% 1,000 ML IV STA (15:14)
[2024-01-22] MEDS: HYDROmorphone 1 MG/ML 1 ML SYRINGE IVP STA (16:10)
--- NOTE | 2024-01-22 17:13 | CT ---
EXAMINATION TYPE: CT abdomen pelvis wo con CT DLP: 407.6 mGycm, Automated exposure control for dose reduction was used. DATE OF EXAM: 01/22/2024 4:25 PM COMPARISON: CT abdomen pelvis most recent from 11/07/2023 CLINICAL INDICATION: Male, 48 years old with history of abdominal pain; ABD PAIN TECHNIQUE: Axial CT abdomen pelvis wo con;Sagittal and coronal reformats were created on a separate workstation. Contrast used: mL of , (none if empty) Oral contrast used: without Oral Contrast (none if empty) FINDINGS: LOWER CHEST: Unremarkable ABDOMEN LIVER: Unremarkable GALLBLADDER AND BILE DUCTS: The gallbladder is surgically absent. PANCREAS: Unremarkable. SPLEEN: Unremarkable. ADRENAL GLANDS: Unremarkable. KIDNEYS AND URETERS: No evidence of hydronephrosis or renal calculus. The ureters are unremarkable. PELVIS BLADDER: Unremarkable REPRODUCTIVE: Unremarkable. ABDOMEN & PELVIS STOMACH AND BOWEL: No evidence of bowel obstruction. . Appendix is normal. PERITONEUM/RETROPERITONEUM: No evidence of pneumoperitoneum or free fluid. VASCULATURE: No evidence of aortic aneurysm. MUSCULOSKELETAL: No acute osseous abnormalities. 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 LYMPH NODES: No gross evidence for lymphadenopathy. SOFT TISSUE/ABDOMINAL WALL: Unremarkable IMPRESSION: 1. No evidence for acute abdominal process. The appendix is normal. No evidence for obstructive urop athy or calculus. 2. 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 [facility], , 01/22/2024 5:11 PM
[2024-01-22 18:11] VITALS: RESP 18
[2024-01-22 18:12] VITALS: BP 136/89; PULSE 89
== END 2024-01-22 18:14 | disposition home or self-care (01) ==
LOC: EC 14:19
DX: K29.70 Gastritis, unspecified, without bleeding (principal); F17.200 Nicotine dependence, unspecified, uncomplicated
CPT/HCPCS: 36415; 80053; 82150; 83605; 83690; 84484; 85025; 85610; 85730; 74176; 99285; 96374; 96375 ×2; 96361; J2405; J1171; J2470; 99284